=== PATIENT | male | born 1985 | race Caucasian/White ===

== ENCOUNTER 2024-03-12 09:55 | Outpatient (CLI) | payer BC, SELFPAY | END 2024-03-12 09:56 | disposition home or self-care (01) | PROVIDERS: PCP Family Medicine; Visit Provider Family Medicine | DX: R55 Syncope and collapse (principal); R86.1 Abnormal level of hormones in specimens from male genital organs; R00.1 Bradycardia, unspecified | CPT/HCPCS: 80053; 80061; 83690; 83735; 84443 ==

== ENCOUNTER 2024-03-23 09:46 | Outpatient (CLI) | payer BC, SELFPAY | END 2024-03-23 09:47 | disposition home or self-care (01) | PROVIDERS: PCP Family Medicine; Visit Provider Family Medicine | DX: R00.1 Bradycardia, unspecified (principal); R55 Syncope and collapse | CPT/HCPCS: 93306 ==